=== PATIENT | female | born 1970 | race American Indian/Alaskan Native ===

== ENCOUNTER 2016-10-03 10:40 | Outpatient (CLI) | payer BC ==
--- NOTE | 2016-10-03 13:59 | Mammography Report ---
BILATERAL DIGITAL SCREENING MAMMOGRAM with CAD: 10/03/16 10:40:00 CLINICAL: Routine screening. COMPARISON:01/15/13 and 09/17/11 FINDINGS: The breasts are heterogeneously dense, which may obscure small masses. No mass, architectural distortion or suspicious calcifications. IMPRESSION: No mammographic evidence of malignancy. BI-RADS CATEGORY: 1 - - Negative RECOMMENDATION: Routine mammographic screening in one year. COMMENT: Patient follow-up letters are generated by our [employer] application.
== END 2016-10-03 10:41 | disposition home or self-care (01) ==
LOC: SPVWC 10:40
PROVIDERS: ATTEND Obstetrics & Gynecology
DX: Z12.31 Encounter for screening mammogram for malignant neoplasm of breast (principal)
CPT/HCPCS: 77067; G0202

== ENCOUNTER 2019-02-12 17:56 | Emergency (ER) | payer BC ==
[2019-02-12 21:07] VITALS: BP 149/86
--- NOTE | 2019-02-12 21:10 | Event Note ---
ED Screening Note Date of service: 02/12/19 Time: 21:06 ED Screening Note: 48 y o female presents with right calf squeezing pain This initial assessment/diagnostic orders/clinical plan/treatment(s) is/are subject to change based on patients health status, clinical progression and re-assessment by fellow clinical providers in the ED. Further treatment and workup at subsequent clinical providers discretion. Patient/guardian urged not to elope from the ED as their condition may be serious if not clinically assessed and managed. Initial orders include: d-dimer acc eval
[2019-02-12] MEDS ORDERED: ENOXAPARIN 100 MG/1 ML INJ SUB-Q ONE (22:45)
--- NOTE | 2019-02-12 22:53 | Emergency Department Report ---
ED Extremity Problem HPI - General Chief complaint: Extremity Injury, Lower Stated complaint: RT LEG PAIN Time Seen by Provider: 02/12/19 22:31 Source: patient Mode of arrival: Ambulatory Limitations: No Limitations - History of Present Illness Initial comments: 48-year-old female the past medical history a previous hysterectomy presents to the hospital complaining of intermittent right calf tightness for 2 days. She denies any injury. She also denies leg swelling, redness, trauma, recent travel, history of PE/DVT, chest pain, or shortness of breath. She is received prescribed azithromycin, Tessalon Perles, and prednisone for bronchitis symptoms. She denies taking any other medications. She went to [facility] urgent care today and was told to come to the ER for ultrasound to rule out DVT. - Related Data Allergies Allergy/AdvReac Type Severity Reaction Status Date / Time No Known Allergies Allergy Unverified 02/12/19 17:57 ED Review of Systems ROS: Stated complaint: RT LEG PAIN Other details as noted in HPI Comment: All other systems reviewed and negative ED Past Medical Hx - Past Medical History Previous Medical History?: No - Surgical History Past Surgical History?: Yes Additional Surgical History: hysterectomy. tonsillectomy - Social History Smoking Status: Unknown if ever smoked Substance Use Type: None ED Physical Exam - General Limitations: No Limitations - Other Other exam information: General: No acute distress Head: Atraumatic Eyes: normal appearance ENT: Moist mucous membranes Neck: Normal appearance, no midline tenderness Chest: Clear to auscultation bilaterally CV: Regular rate and rhythm Abdomen: Soft, normal bowel sounds, nontender, nondistended, no rebound or guarding Back: Normal inspection Extremity: Normal inspection infection, full range of motion, no calf tenderness, leg edema, or redness on examination. 2+ dp pulse on right foot Neuro: Alert O x 3, no facial asymmetry, speech clear, no gross motor sensory deficit Psych: Appropriate behavior Skin: No rash ED Course Vital Signs 02/12/19 21:04 Temperature 97.7 F Pulse Rate 71 Respiratory 18 Rate Blood Pressure 149/86 O2 Sat by Pulse 100 Oximetry ED Medical Decision Making - Lab Data Lab Results 02/12/19 Range/Units 21:36 D-Dimer 274.10 H (0-234) ng/mlDDU - Medical Decision Making She has no physical abnormality on exam. She has no calf tenderness. She states that calf tenderness is intermittent. She did have a mildly elevated d- dimer. Therefore, she was treated with a 24-hour dose of Lovenox was scheduled Doppler in the morning since it is not available tonight. Patient does not take any statins or have any other muscular skeletal pain. - Differential Diagnosis muscle cramps, muscle strain, DVT Critical Care Time: No Critical care attestation.: If time is entered above; I have spent that time in minutes in the direct care of this critically ill patient, excluding procedure time. ED Disposition Clinical Impression: Right leg pain Disposition: DC-01 TO HOME OR SELFCARE Is pt being admited?: No Does the pt Need Aspirin: No Condition: Stable Instructions: Musculoskeletal Pain (ED) Additional Instructions: You received a 24-hour dose of a blood thinner until your ultrasound could be performed. Ultrasound has been ordered for tomorrow. Return to the ER if positive for blood clot. If negative for blood clot then follow-up with your primary care doctor or the doctor provided. Referrals: your, doctor [Other] - 3-5 Days MUNDO PEREIRA MD [Staff Physician] - 3-5 Days Time of Disposition: 23:05
== END 2019-02-12 23:31 | disposition home or self-care (01) ==
LOC: ED 17:56
DX: M79.604 Pain in right leg (principal); Z90.710 Acquired absence of both cervix and uterus; Z90.89 Acquired absence of other organs
CPT/HCPCS: 36415; 85379; 96372; 99283; J1650

== ENCOUNTER 2019-02-15 15:37 | Outpatient (CLI) | payer BC ==
--- NOTE | 2019-02-15 16:50 | Vascular Lab Report ---
DUPLEX DOPPLER LOWER EXTREMITY VEINS, RIGHT INDICATION: Right leg pain and paresthesias. TECHNIQUE: Duplex doppler imaging was performed through the veins of the right lower extremity using venous comp ression and other maneuvers. COMPARISON: None available. FINDINGS: Common femoral vein: Negative. Superficial femoral vein: Negative. Popliteal vein: Negative. Calf veins: Negative. Additional findings: There is no evidence of a popliteal cyst or other abnormality. IMPRESSION: No sonographic evidence for DVT in the right lower extremity. Signer Name: Kit Amezquita MD Signed: 02/15/2019 4:45 PM Workstation Name: [id number]
== END 2019-02-15 15:38 | disposition home or self-care (01) ==
LOC: VAS 15:37
PROVIDERS: ATTEND Emergency Medicine
DX: R20.2 Paresthesia of skin (principal); M79.604 Pain in right leg